=== PATIENT | female | born 1960 | race Caucasian/White ===

== ENCOUNTER → 2019-10-01 11:29 | Outpatient (BNVA) | payer SELFPAY | PROVIDERS: Referring Provider Nurse Practitioner; Visit Provider Podiatrist Foot & Ankle Surgery | DX: M79.673 Pain in unspecified foot (principal); M21.42 Flat foot [pes planus] (acquired), left foot; M21.41 Flat foot [pes planus] (acquired), right foot | CPT/HCPCS: 73630 ==

== ENCOUNTER 2019-11-12 14:48 | Outpatient (CLI) | payer SELFPAY | END 2019-11-12 14:49 | disposition home or self-care (01) | LOC: SPT 14:48 | PROVIDERS: Visit Provider Podiatrist Foot & Ankle Surgery | DX: Z46.89 Encounter for fitting and adjustment of other specified devices (principal); M79.671 Pain in right foot | CPT/HCPCS: 97760; L4361 ==

== ENCOUNTER → 2020-09-22 12:05 | Outpatient (BNVA) | payer MEDICARE, SELFPAY | PROVIDERS: PCP Internal Medicine; Visit Provider Podiatrist Foot & Ankle Surgery | DX: M79.673 Pain in unspecified foot (principal); M77.32 Calcaneal spur, left foot | CPT/HCPCS: 73630 ==

== ENCOUNTER 2020-12-03 06:00 | Outpatient (RCR) | payer MEDICARE, SELFPAY | END 2020-12-18 23:59 | disposition home or self-care (01) | LOC: GPT 06:00 | PROVIDERS: Referring Provider Podiatrist Foot & Ankle Surgery; Visit Provider Podiatrist Foot & Ankle Surgery | DX: M76.62 Achilles tendinitis, left leg (principal) | CPT/HCPCS: 97032; 97110; 97161; 97530 ==

== ENCOUNTER 2020-12-19 06:00 | Outpatient (RCR) | payer MEDICARE, SELFPAY | END 2021-01-18 23:59 | disposition home or self-care (01) | LOC: GPT 06:00 | PROVIDERS: Referring Provider Podiatrist Foot & Ankle Surgery; Visit Provider Podiatrist Foot & Ankle Surgery | DX: M65.272 Calcific tendinitis, left ankle and foot (principal) | CPT/HCPCS: 97032; 97110; 97116; 97140; 97530; G0283 ==

== ENCOUNTER 2021-01-12 16:54 | Outpatient (CLI) | payer MEDICARE, SELFPAY ==
--- NOTE | 2021-01-12 17:04 | MR_ITS ---
WS: [id number] MRI LEFT FOOT without CONTRAST. COMPARISON: Foot radiograph 09/22/2020 Multiplanar, multisequence imaging is performed without contrast. History: Chronic LEFT foot pain. Marker is placed over the area of pain which corresponds to the distal tibia. There is a fluid gap in the distal volar surface of the Achilles tendon. Fluid gap measures 6 mm in diameter. There is an ad jacent cyst extending anteriorly into the pre-Achilles fat pad. There is additional increased marrow signal in the lateral aspect of posterior calcaneus. There is additional peritendinous and soft tissu e inflammation. Significant amount of edema within the soft tissues surrounding the distal Achilles t endon and also over the lateral aspect of the calcaneus. The tendon is not retracted but the insertio n site tear extends over a length of 12 mm. There is a additional mild pes planus of the foot. Advanced degenerative changes at the tarsometatars al articulation. Beaking and hypertrophic bone formation especially at the second tarsometatarsal art iculation. No widening of Lisfranc articulation. MR/MR ankle LT wo con* [id number] IMPRESSION: 1. High-grade tear involving the distal Achilles tendon. Fluid collapse in the anterior tendon measures 6 mm. There is a additional larger insertion site tea r measuring 12 mm. 2. There is additional peritendinous soft tissue edema and marrow edema in the lateral calcaneus. 3. 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
== END 2021-01-12 16:55 | disposition home or self-care (01) ==
LOC: RADSHAW 17:01
PROVIDERS: PCP Internal Medicine; Visit Provider Podiatrist Foot & Ankle Surgery
DX: M25.572 Pain in left ankle and joints of left foot (principal); R60.0 Localized edema
CPT/HCPCS: 73721

== ENCOUNTER → 2021-01-25 09:17 | Outpatient (BNVA) | payer MEDICARE, SELFPAY | PROVIDERS: PCP Internal Medicine; Visit Provider Podiatrist Foot & Ankle Surgery | DX: Z20.822 Contact with and (suspected) exposure to COVID-19 (principal); M67.88 Other specified disorders of synovium and tendon, other site | CPT/HCPCS: 87635 ==

== ENCOUNTER 2021-01-28 09:14 | Day surgery (SDC) | payer MEDICARE, SELFPAY ==
[2021-01-27 13:18] VITALS: BMI 40.1
[2021-01-28] VITALS (10 sets, daily range): BP systolic 106–141; BP diastolic 46–84; PULSE 69–77; RESP 14–18; TEMP 36.3–36.4; O2SAT 94–98
--- NOTE | 2021-01-28 | SCC_ITS ---
Procedure Done: Baljit's resection with primary Achilles repair left lower extremity CPT code 22284 and 69490 2 seconds of fluoroscopic guidance, for a cumulative dose of 0.06 mGy, was provided to Dr. Blanca by the radiology department. C-arm images of the LEFT foot were saved for the patient's permanent record. [facility]
--- NOTE | 2021-01-28 09:31 | ANES.PREANE2 ---
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 Proposed Procedure: Operation Date: 01/28/21 10:50 Proposed Procedures p Tendon Repair Foot [id number] M65.28(Left) - Alfredo Blanca DPM s [place] Resection and possible flexor hallucis longus tendon transfer all left lower extremity(Left) - Alfredo Blanca DPM Was Beta Bernie taken within 24 hours: Yes Was Clonidine taken within 24 hours: N/A Social: Social History: Tobacco and No alcohol Exam: Pre-Anes Outpt Exam: alert, oriented x 3, clear to auscultation bilaterally and regular rate & rhythm Airway: Submandibular: WNL Cervical ROM: WNL MP: 2 Dentition: Partials Pulmonary: Pulmonary: None reported CV/HEM: CV/HEM: HTN : : None reported Hepatic: Hepatic: None reported GI: GI: None reported Metabolic: Metabolic: DM, Hyperlipidemia and Morbid obesity Musc/skel: Musc/skel: None reported Neuropsych: Neuropsych: None reported Anesthetic Plan: ASA status: 3 Anesthesia: General PFSH Anesthesia PFSH: Medical History Diabetic peripheral neuropathy associated with type 2 diabetes mellitus Hypertension Social History Smoking and tobacco status: current every day smoker (10 ciggarettes a day ) Alcohol intake: never Data Anesthesia Cardiac Studies: No Data to Display
[2021-01-28] MEDS: sodium chloride 0.9% 1,000 ML 30 ML IV (09:58)
[2021-01-28 10:03] LABS: Glucose Point of Care 121 mg/dL (70-110)
--- NOTE | 2021-01-28 10:14 | XR_ITS ---
WS: [id number] Left foot, lateral view, 01/28/2021 Clinical Data: Postop Baljit's resection Comparison: Left foot, 09/22/2020. Findings: There is been resection of the posterior superior portion of the calcaneus. The plantar spur remains. XR/XR foot LT 2V 83830 Impression: Resection of posterior superior portion of the left calcaneus.
--- NOTE | 2021-01-28 10:14 | W.PM.OPSUD ---
Surgery/Procedure H&P Update DATE OF PROCEDURE: January 28, 2021 DATE H&P PERFORMED: 01/20/21 H&P UPDATE INFORMATION: I have reviewed H&P completed within last 30 days, I have examined patient prior to procedure, No changes to prior documentation and H&P is in [facility] [place] [facility] EMR on date indicated PREOP DIAGNOSIS: Baljit's deformity and Achilles tendon tear, left. PLANNED PROCEDURE: Operation Date: 01/28/21 10:50 Proposed Procedures p Tendon Repair Foot [id number] M65.28(Left) - Alfredo Blanca DPM s [place] Resection and possible flexor hallucis longus tendon transfer all left lower extremity(Left) - Alfredo Blanca DPM
--- NOTE | 2021-01-28 10:15 | P.OP_ITS ---
Operative Report Date of procedure: January 28, 2021 Pre-op Diagnosis: Baljit's deformity and Achilles tendon tear, left. Post-op diagnosis: same Post-op Findings: Baljit's deformity and Achilles tear, left lower extremity. Procedure Done: Baljit's resection with primary Achilles repair left lower extremity CPT code 68877 and 76311 Implants: Fracture speed bridge, 3-0 Vicryl, 3-0 nylon and 4-0 nylon Specimens removed/disposition: None Pathology: none sent Surgeon: Alfredo Blanca D.P.M. [employer] Instructor: Connor Anesthesia: General Estimated blood loss: Less than 5 mL Tourniquet time: 48 minutes IV fluids: None Urine output: None Complications: None Findings: Achilles degeneration with tearing and Baljit's deformity with bursitis. Condition: stable Disposition: PACU Brief History: Patient held conservative treatments consisting of rest, activity modifications, at home physical therapy, formal physical therapy, anti- inflammatories both steroidal and nonsteroidal, eccentric loading, stretching and night splint at progressive pain necessitating surgical correction this pain has been consuming for her has pain on a daily basis with everyday activities. Risks for surgical intervention include but are not limited to pain, bleeding, numbness, infection, surgical site dehiscence, delayed healing, surgical site infection, soft tissue/skin necrosis at the surgical site, Achilles tendon rupture, lengthening or shortening of Achilles tendon, need for further surgical intervention. Also need for physical therapy and bracing postoperatively as a possibility. Patient wishes to proceed, has been n.p.o. since midnight, Covid negative, informed consent signed, initialed her left lower extremity, no guarantees written, expressed or implied. Procedure: Under mild sedation the patient was brought to the operating room and remained on the gurney in supine position. A timeout was performed. Anesthesia was then administered by the anesthesia service. Patient was then positioned in prone position on the operative table with appropriate bumping and support. Well-padded pneumatic tourniquet was applied to the left high calf. Left lower extremity was scrubbed, prepped and draped utilizing normal aseptic technique. Left foot was then wrapped with an Esmarch bandage and the tourniquet inflated to 250 mmHg. Attention was directed to the posterior left heel and Achilles tendon was palpated. Curvilinear lazy S incision performed midline of the Achilles tendon coursing distally deviated medially then back centrally inferior to the Baljit's prominence. This was a full-thickness incision including the peritenon and reflected. The medial portion of the Achilles tendon as well as reflected of its attachment site with maintaining lateral attachment an oscillating saw utilized to resect the Baljit's resection bony resection was 3 cm wide by 3 cm long by 1 cm thick and all rough edges smoothed and all bony prominences smooth with a rasp. Next utilizing an Achilles speed bridge with 2 high to low the Achilles tendon was brought into reapposition of the posterior calcaneus with excellent tenderness to bone contact and Achilles out to proper length. Incision was flushed with saline solution and closed with 3-0 Vicryl with peritenon and subcutaneous tissue and 3-0 nylon and 4-0 nylon with a combination of simple interrupted suture and horizontal mattress on skin. This was then dressed with jumpstart, 4 x 4, Kerlix followed by application of multilayer compressive Pulliam splint. Tourniquet was deflated and a prompt hyperemic response was noted to the distal digits of the left foot. Patient tolerated the procedure and anesthesia well and was transferred to the PACU with vital signs stable and vascular status intact. Following a period of postoperative monitoring she will be discharged home was prescribed Percocet 10/325 to be taken judiciously as needed for pain. She is to remain strict nonweightbearing to the left lower extremity. She was given at home care instructions on discharge paperwork. Postop intraoperative and in PACU x-rays were taken and noted to have improved resection of Baljit's deformity.
--- NOTE | 2021-01-28 11:43 | P.PCN_ITS ---
PACU note PACU note: VSS, Good respiratory effort, report to HEART SURGEON Post-Anesthesia Exam: awake
--- NOTE | 2021-01-28 11:43 | PM.PACU ---
PACU note PACU note: VSS, Good respiratory effort, report to MANAGER OF INTERNAL AUDIT Post-Anesthesia Exam: awake
--- NOTE | 2021-01-28 12:20 | SUR.PHASEII ---
patient pain per faces 3/10
[2021-01-28] MEDS: oxyCODONE-APAP 10-325 mg Tablet 1 TAB PO (12:35)
== END 2021-01-28 13:20 | disposition home or self-care (01) ==
PROVIDERS: PCP Internal Medicine; Visit Provider Podiatrist Foot & Ankle Surgery
PROC: (CPT 27650; principal; 2021-01-28 10:40)
PROC: (CPT 27650; 2021-01-28 10:40)
DX: M92.62 Juvenile osteochondrosis of tarsus, left ankle (principal); S86.012A Strain of left Achilles tendon, initial encounter; X58.XXXA Exposure to other specified factors, initial encounter; I10 Essential (primary) hypertension; E11.42 Type 2 diabetes mellitus with diabetic polyneuropathy; E78.5 Hyperlipidemia, unspecified; E66.01 Morbid (severe) obesity due to excess calories; Z68.41 Body mass index [BMI] 40.0-44.9, adult; F17.210 Nicotine dependence, cigarettes, uncomplicated; Z79.82 Long term (current) use of aspirin
CPT/HCPCS: 27650; 28120; 36416; 73620; 76000; 82962; 96365; C1713; C9290; J0690; J1100; J2405; J2704; J2710; J3010; J3490; J7030

== ENCOUNTER 2021-02-18 11:14 | Outpatient (CLI) | payer MEDICARE, SELFPAY | END 2021-02-18 11:15 | disposition home or self-care (01) | LOC: SPT 11:16 | PROVIDERS: PCP Internal Medicine; Visit Provider Podiatrist Foot & Ankle Surgery | DX: Z46.89 Encounter for fitting and adjustment of other specified devices (principal); M65.272 Calcific tendinitis, left ankle and foot | CPT/HCPCS: 97760; L3332; L4361 ==

== ENCOUNTER → 2021-05-02 13:47 | Outpatient (BNVA) | payer MEDICARE, SELFPAY | PROVIDERS: PCP Internal Medicine; Visit Provider Podiatrist Foot & Ankle Surgery | DX: Z48.89 Encounter for other specified surgical aftercare (principal) | CPT/HCPCS: 73630 ==